=== PATIENT | female | born 1985 | race Caucasian/White ===

== ENCOUNTER 2023-08-26 22:22 | Emergency (ER) | payer MEDICAID ==
[~2023-08-26] VITALS: Ht 162.6 cm; Wt 73.0 kg
[2023-08-26 22:28] VITALS: O2SAT 98
[2023-08-26] MEDS ORDERED: BACITRACIN ZINC OINT UDPKT TOP ONE (23:00)
[2023-08-26] MEDS ORDERED: LIDOCAINE HCL/PF 1% 10 MG/ML 5ML VIAL INFIL ONE (23:00)
[2023-08-26] MEDS: TETANUS, DIPHTHERIA, PERTUSSIS VAC/PF 0.5ML (>10YR OLD) IM ONE (23:11)
[2023-08-27 01:55] VITALS: BP 136/72; PULSE 78; RESP 17
== END 2023-08-27 01:58 | disposition home or self-care (01) ==
LOC: ER 22:22
DX: S41.112A Laceration without foreign body of left upper arm, initial encounter (principal); W26.0XXA Contact with knife, initial encounter; Y93.89 Activity, other specified; Y92.89 Other specified places as the place of occurrence of the external cause; Y99.8 Other external cause status
CPT/HCPCS: 12004; 90471; 90715; 99283

== ENCOUNTER 2023-09-10 16:42 | Emergency (ER) | payer MEDICAID ==
[~2023-09-10] VITALS: Ht 172.7 cm; Wt 66.0 kg
[2023-09-10 16:44] VITALS: BP 107/73; PULSE 82; TEMP 98.6; O2SAT 100
== END 2023-09-10 17:03 | disposition home or self-care (01) ==
LOC: ER 16:42
DX: Z48.02 Encounter for removal of sutures (principal)
CPT/HCPCS: 99281; Z7610